=== PATIENT | male | born 1960 | race Asian ===

== ENCOUNTER 2024-11-24 19:00 | Inpatient (IN) | payer OTHER, MEDICARE ==
[~2024-11-24] VITALS: Ht 175.3 cm; Wt 83.1 kg
[2024-11-24 20:07] LABS: BASOPHILS % 0.6 % (0.0-2.0); EOSINOPHILS % 1.4 % (0.0-5.0); HEMATOCRIT. 38.8 % (42.0-52.0); LYMPHOCYTES % 14.1 % (20.0-50.0); MEAN CORPUSCULAR HEMOGLOBIN 30.2 pg (28.0-32.0); MEAN CORPUSCULAR HGB CONC 33.4 g/dL (31.0-37.0); MEAN CORPUSCULAR VOLUME 90.4 fL (80.0-94.0); MEAN PLATELET VOLUME 7.8 fl (7.4-10.4); MONOCYTES % 6.7 % (2.0-8.0); NEUTROPHILS % 77.2 % (40.0-76.0); PLATELET 359 x1000/uL (130-400); RED BLOOD CELL COUNT 4.29 mill/uL (4.7-6.1); RED CELL DISTRIBUTION WIDTH 13.1 % (11.6-14.6)
[2024-11-24 20:15] LABS: CHLORIDE 103 mEq/L (98-107); POTASSIUM 4.2 mEq/L (3.5-5.1); SODIUM 137 mEq/L (136-145)
[2024-11-24 20:16] LABS: CALCIUM 8.9 mg/dL (8.7-10.4); CARBON DIOXIDE 26 mEq/L (21-32)
[2024-11-24 20:21] LABS: CREATININE 0.9 mg/dL (0.6-1.3); GLUCOSE 138 mg/dL (70-105); UREA NITROGEN BLOOD 16 mg/dL (9-23)
[2024-11-24 20:23] LABS: ALANINE AMINOTRANSFERASE 48 IU/L (10-49); ASPARTATE AMINOTRANSFERASE 36 IU/L (<34); BILIRUBIN DIRECT 0.1 mg/dL (<=3.0); BILIRUBIN TOTAL 0.4 mg/dL (0.1-1.0); PROTEIN TOTAL 7.8 g/dL (6.0-8.3)
[2024-11-24 20:28] LABS: D-DIMER 0.34 mg/L FEU (<0.50); PROTHROMBIN TIME 10.6 sec (9.6-11.0)
[2024-11-24 20:29] LABS: TROPONIN I HIGH SENSITIVITY 78 ng/L (3.0-53)
[2024-11-24] MEDS: DIPHENHYDRAMINE 50MG/ML VIAL IV NR (21:34)
[2024-11-24 23:58] LABS: CLARITY URINE CLEAR (CLEAR); COLOR URINE YELLOW (YELLOW); GLUCOSE URINE NEGATIVE (NEGATIVE); KETONES URINE NEGATIVE (NEGATIVE); LEUKOCYTE ESTERASE URINE NEGATIVE (NEGATIVE); NITRITE URINE NEGATIVE (NEGATIVE); OCCULT BLOOD URINE NEGATIVE (NEGATIVE); PROTEIN URINE NEGATIVE (NEGATIVE); SPECIFIC GRAVITY URINE 1.011 (1.005-1.030); UROBILINOGEN URINE 0.2 E.U./dL (0.2-1.0)
[2024-11-25] MEDS: ASPIRIN 325MG EC TABLET PO NR (00:14)
[2024-11-25] MEDS: ENOXAPARIN 80MG/0.8ML SYR SUBCUT NR (00:15)
[2024-11-25] MEDS ORDERED: HYDROCODONE/ACETAMINOPHEN 5/325MG TABLET PO PRN (00:30)
[2024-11-25] MEDS ORDERED: ZOLPIDEM TARTRATE 5MG TABLET PO PRN (00:30)
[2024-11-25] MEDS ORDERED: ONDANSETRON HCL 4MG/2ML INJ IV PRN (00:30)
[2024-11-25] MEDS: CLONIDINE 0.1MG TABLET PO PRN (01:09)
[2024-11-25] MEDS: SODIUM CHLORIDE 0.9% 1,000 ML IV SCH (01:09)
[2024-11-25 01:43] VITALS: BP 167/94; PULSE 63; RESP 16; TEMP 36.3
[2024-11-25 04:00] VITALS: BP 119/71; PULSE 51; RESP 18; TEMP 36.6; O2SAT 98
[2024-11-25 04:56] LABS: CLARITY URINE CLEAR (CLEAR); COLOR URINE YELLOW (YELLOW); GLUCOSE URINE NEGATIVE (NEGATIVE); KETONES URINE NEGATIVE (NEGATIVE); LEUKOCYTE ESTERASE URINE NEGATIVE (NEGATIVE); NITRITE URINE NEGATIVE (NEGATIVE); OCCULT BLOOD URINE NEGATIVE (NEGATIVE); PH URINE 6.5 (4.5-8.0); PROTEIN URINE NEGATIVE (NEGATIVE); SPECIFIC GRAVITY URINE 1.012 (1.005-1.030); UROBILINOGEN URINE 0.2 E.U./dL (0.2-1.0)
[2024-11-25 05:15] LABS: *AMPHETAMINES SCREEN URINE NEGATIVE (NEGATIVE); *BARBITURATES SCREEN URINE NEGATIVE (NEGATIVE); *BENZODIAZEPINES SCREEN URINE NEGATIVE (NEGATIVE); *COCAINE SCREEN URINE NEGATIVE (NEGATIVE)
[2024-11-25 05:16] LABS: CANNABINOID URINE SCREEN NEGATIVE (NEGATIVE); ECSTASY MDMA SCREEN URINE NEGATIVE (NEGATIVE); METHADONE URINE SCREEN NEGATIVE (NEGATIVE); OPIATES URINE SCREEN NEGATIVE (NEGATIVE); PHENCYCLIDINE URINE SCREEN NEGATIVE (NEGATIVE)
[2024-11-25 08:00] VITALS: BP 119/71; PULSE 65; RESP 15; TEMP 36.4; O2SAT 98
[2024-11-25] MEDS: PANTOPRAZOLE SODIUM 40 MG/VIAL IV SCH (08:43)
[2024-11-25 09:42] LABS: TROPONIN I HIGH SENSITIVITY 83 ng/L (3.0-53)
[2024-11-25] MEDS: ENOXAPARIN 80MG/0.8ML SYR SUBCUT SCH ×2 (11:00→18:11)
[2024-11-25 12:00] VITALS: BP 150/92; PULSE 62; RESP 20; TEMP 36.7; O2SAT 98
[2024-11-25] MEDS: EMPAGLIFLOZIN 10MG TABLET PO SCH (13:25)
[2024-11-25] MEDS: ASPIRIN 81MG TABLET PO SCH (13:25)
[2024-11-25] MEDS ORDERED: HEPARIN 1000 UNITS/ML 10ML ONE (13:52)
[2024-11-25] MEDS ORDERED: IODIXANOL 320MG/ML 100 ML BOTTLE IV ONE (13:52)
[2024-11-25] MEDS ORDERED: VERAPAMIL HCL 2.5 MG/1 ML 2ML VIAL IV ONE (13:52)
[2024-11-25] MEDS ORDERED: LIDOCAINE HCL 1% 10 MG/ML 10ML VIAL ONE (13:52)
[2024-11-25] MEDS ORDERED: MIDAZOLAM HCL 2 MG/2 ML VIAL ONE (14:18)
[2024-11-25] MEDS ORDERED: DIPHENHYDRAMINE 50MG/ML VIAL ONE (14:18)
[2024-11-25] MEDS ORDERED: FENTANYL CITRATE/PF 50MCG/ML 2ML VIAL ONE (14:18)
[2024-11-25 16:00] VITALS: BP 144/91; PULSE 56; RESP 16; TEMP 36.8; O2SAT 95
[2024-11-25] MEDS ORDERED: ATROPINE SULFATE 1MG/10ML SYR IV PRN (16:00)
[2024-11-25] MEDS ORDERED: ACETAMINOPHEN 325MG TABLET PO PRN (16:00)
[2024-11-25] MEDS ORDERED: NALOXONE HCL 0.4MG/ML VIAL IV PRN (16:00)
[2024-11-25 16:47] LABS: TROPONIN I HIGH SENSITIVITY 51 ng/L (3.0-53)
[2024-11-25 20:00] VITALS: BP 134/75; PULSE 65; RESP 15; TEMP 36.7; O2SAT 94
[2024-11-25] MEDS: ATORVASTATIN CALCIUM 40MG TABLET PO SCH (21:06)
[2024-11-26] VITALS: BP 139/85; PULSE 59; RESP 19; TEMP 36.8; O2SAT 96
[2024-11-26 04:00] VITALS: BP 140/90; PULSE 59; RESP 19; TEMP 36.2; O2SAT 100
[2024-11-26 07:02] LABS: BASOPHILS % 0.5 % (0.0-2.0); EOSINOPHILS % 0.7 % (0.0-5.0); HEMATOCRIT. 39.2 % (42.0-52.0); HEMOGLOBIN. 13.1 g/dL (14.0-18.0); LYMPHOCYTES % 13.2 % (20.0-50.0); MEAN CORPUSCULAR HEMOGLOBIN 30.1 pg (28.0-32.0); MEAN CORPUSCULAR HGB CONC 33.3 g/dL (31.0-37.0); MEAN CORPUSCULAR VOLUME 90.4 fL (80.0-94.0); MEAN PLATELET VOLUME 8.3 fl (7.4-10.4); MONOCYTES % 6.2 % (2.0-8.0); NEUTROPHILS % 79.4 % (40.0-76.0); PLATELET 323 x1000/uL (130-400); RED BLOOD CELL COUNT 4.34 mill/uL (4.7-6.1); RED CELL DISTRIBUTION WIDTH 13.1 % (11.6-14.6); WHITE BLOOD COUNT 12.2 x1000/uL (4.5-11.0)
[2024-11-26 07:12] LABS: CHLORIDE 103 mEq/L (98-107); POTASSIUM 4.2 mEq/L (3.5-5.1); SODIUM 138 mEq/L (136-145)
[2024-11-26 07:13] LABS: CARBON DIOXIDE 26 mEq/L (21-32)
[2024-11-26 07:14] LABS: CALCIUM 8.9 mg/dL (8.7-10.4)
[2024-11-26 07:18] LABS: GLUCOSE 101 mg/dL (70-105)
[2024-11-26 07:19] LABS: UREA NITROGEN BLOOD 16 mg/dL (9-23)
[2024-11-26 08:00] VITALS: BP 154/98; PULSE 62; RESP 17; TEMP 36.9; O2SAT 98
[2024-11-26 12:00] VITALS: BP 168/114; PULSE 62; RESP 16; TEMP 36.9; O2SAT 100
[2024-11-26 16:00] VITALS: BP 157/95; PULSE 59; RESP 18; TEMP 36.8; O2SAT 100
[2024-11-26 20:00] VITALS: BP 147/94; PULSE 59; RESP 17; TEMP 36.6; O2SAT 98
[2024-11-27 00:29] VITALS: BP 152/98; PULSE 66; RESP 16; TEMP 37; O2SAT 95
[2024-11-27 04:36] VITALS: BP 150/95; PULSE 59; RESP 11; TEMP 36.4; O2SAT 99
[2024-11-27 06:30] LABS: CARBON DIOXIDE 24 mEq/L (21-32); CHLORIDE 102 mEq/L (98-107); SODIUM 137 mEq/L (136-145)
[2024-11-27 06:36] LABS: CREATININE 0.9 mg/dL (0.6-1.3); GLUCOSE 98 mg/dL (70-105); TRIGLYCERIDE 174 mg/dL (0-150); UREA NITROGEN BLOOD 14 mg/dL (9-23)
[2024-11-27 06:37] LABS: LDL CHOLESTEROL 102 mg/dL (5-100)
[2024-11-27 06:38] LABS: CHOLESTEROL 164 mg/dL (<200); HDL CHOLESTEROL 37 mg/dL (>55)
[2024-11-27 08:00] VITALS: BP 153/95; PULSE 67; RESP 18; TEMP 36.6; O2SAT 99
[2024-11-27] MEDS: FAMOTIDINE 20MG TABLET PO SCH (08:12)
[2024-11-27] MEDS: ISOSORBIDE MONONITRATE 30MG TABLET SR 24HR PO NR (10:19)
[2024-11-27 12:00] VITALS: BP 147/83; PULSE 55; RESP 18; TEMP 36.8; O2SAT 98
[2024-11-27 16:00] VITALS: BP 136/70; PULSE 60; RESP 20; TEMP 36.7; O2SAT 98
[2024-11-27 20:00] VITALS: BP 142/81; PULSE 55; RESP 19; TEMP 36.4; O2SAT 97
[2024-11-28] VITALS (7 sets, daily range): BP systolic 120–143; BP diastolic 57–91; PULSE 58–74; RESP 16–21; TEMP 36.5–37.2; O2SAT 95–100
[2024-11-28 08:43] LABS: CARBON DIOXIDE 26 mEq/L (21-32); CHLORIDE 101 mEq/L (98-107); SODIUM 136 mEq/L (136-145)
[2024-11-28 08:44] LABS: CALCIUM 8.9 mg/dL (8.7-10.4)
[2024-11-28 08:49] LABS: GLUCOSE 143 mg/dL (70-105); UREA NITROGEN BLOOD 14 mg/dL (9-23)
[2024-11-28 10:34] LABS: BASOPHILS % 0.4 % (0.0-2.0); EOSINOPHILS % 0.7 % (0.0-5.0); HEMATOCRIT. 39.7 % (42.0-52.0); LYMPHOCYTES % 14.5 % (20.0-50.0); MEAN CORPUSCULAR HEMOGLOBIN 29.6 pg (28.0-32.0); MEAN CORPUSCULAR HGB CONC 32.7 g/dL (31.0-37.0); MEAN CORPUSCULAR VOLUME 90.3 fL (80.0-94.0); MEAN PLATELET VOLUME 8.7 fl (7.4-10.4); MONOCYTES % 7.6 % (2.0-8.0); NEUTROPHILS % 76.8 % (40.0-76.0); PLATELET 331 x1000/uL (130-400); RED CELL DISTRIBUTION WIDTH 13.1 % (11.6-14.6); WHITE BLOOD COUNT 11.4 x1000/uL (4.5-11.0)
[2024-11-28 10:42] LABS: PROTHROMBIN TIME 10.9 sec (9.6-11.0)
[2024-11-28] MEDS: DEXT 5%/0.45% NACL KCL 20MEQ/L 1,000 ML IV SCH (11:30)
[2024-11-28] MEDS: ISOSORBIDE MONONITRATE 30MG TABLET SR 24HR PO SCH (11:30)
[2024-11-28] MEDS: IPRATROPIUM/ALBUTEROL 0.5-3(2.5)MG/3ML NEB NEB PRN (11:52)
[2024-11-28] MEDS: CHLORHEXIDINE GLUCONATE 4% EXTERNAL USE TOP SCH (21:25)
[2024-11-29] VITALS (40 sets, daily range): BP systolic 79–145; BP diastolic 43–96; PULSE 61–92; RESP 8–39; TEMP 36–36.9; O2SAT 97–100
[2024-11-29] MEDS ORDERED: DEL NIDO CARDIOPLEGIA 1,000 ML (CHMC) IV NR (05:00)
[2024-11-29] MEDS ORDERED: DOBUTAMINE 250 MG/250 ML PREMIX IV PRN (05:00)
[2024-11-29] MEDS ORDERED: NICARDIPINE 40MG/200ML PREMIX 200 ML IV PRN (05:00)
[2024-11-29] MEDS ORDERED: AMINOCAPROIC ACID 5,000 MG in SODIUM CHLORIDE 0.9% 250 ML IV PRN (05:00)
[2024-11-29] MEDS ORDERED: PAPAVERINE HCL 180MG in SODIUM CHLORIDE 0.9% 24ML IV NR (05:00)
[2024-11-29] MEDS ORDERED: VANCOMYCIN 1 G/200 ML PREMIX IV NR (05:00)
[2024-11-29] MEDS ORDERED: NOREPINEPHRINE 8MG/250ML PMX 242 ML IV PRN (05:00)
[2024-11-29] MEDS ORDERED: NICARDIPINE 50 MG in NS 250 ML IV PRN (05:00)
[2024-11-29] MEDS ORDERED: INSULIN REGULAR 100 U/100 ML PREMIX IV PRN (05:00)
[2024-11-29] MEDS ORDERED: DEL NIDO CARDIOPLEGIA 1,000 ML (CHMC) IV PRN (05:00)
[2024-11-29] MEDS ORDERED: CEFEPIME 2GM/50ML DUPLEX 50 ML IV NR (05:00)
[2024-11-29] MEDS ORDERED: EPINEPHRINE 5 MG in DEXT 5% WATER 250 ML IV PRN (05:00)
[2024-11-29 05:54] LABS: CHLORIDE 103 mEq/L (98-107); POTASSIUM 4.2 mEq/L (3.5-5.1); SODIUM 137 mEq/L (136-145)
[2024-11-29 05:55] LABS: CARBON DIOXIDE 24 mEq/L (21-32)
[2024-11-29 06:00] LABS: GLUCOSE 106 mg/dL (70-105); UREA NITROGEN BLOOD 13 mg/dL (9-23)
[2024-11-29 06:07] LABS: HEMATOCRIT 38.6 % (42.0-52.0); HEMOGLOBIN 12.5 g/dL (14.0-18.0); MEAN CORPUSCULAR HEMOGLOBIN 29.9 pg (28.0-32.0); MEAN CORPUSCULAR HGB CONC 32.4 g/dL (31.0-37.0); MEAN CORPUSCULAR VOLUME 92.1 fL (80.0-94.0); PLATELET 330 x1000/uL (130-400); RED BLOOD CELL COUNT 4.19 mill/uL (4.7-6.1); RED CELL DISTRIBUTION WIDTH 13.2 % (11.6-14.6); WHITE BLOOD COUNT 11.3 x1000/uL (4.5-11.0)
[2024-11-29] MEDS ORDERED: POLYMYXIN B SULFATE 500000 UNITS/VIAL ONE (06:11)
[2024-11-29] MEDS ORDERED: SKIN ADHESIVE 0.7 GM EA TOP ONE (06:12)
[2024-11-29] MEDS ORDERED: VASOPRESSIN 20 UNIT/ML 1ML ONE (06:12)
[2024-11-29] MEDS ORDERED: SUGAMMADEX SODIUM 200MG/2ML VIAL IV ONE (06:12)
[2024-11-29] MEDS ORDERED: THROMBIN (BOVINE) 5000 UNITS/VIAL TOP ONE ×2 (06:12→13:49)
[2024-11-29] MEDS ORDERED: DESMOPRESSIN ACETATE 4MCG/ML AMP ONE (06:13)
[2024-11-29] MEDS ORDERED: HEPARIN 1000 UNITS/ML 10ML ONE (06:16)
[2024-11-29] MEDS ORDERED: SEVOFLURANE 250 ML LIQUID INH ONE (06:16)
[2024-11-29] MEDS ORDERED: NITROGLYCERIN 50MG PREMIX 250 ML IV ONE (06:16)
[2024-11-29] MEDS ORDERED: PROPOFOL 10MG/ML 100ML 100 ML IV ONE (06:17)
[2024-11-29] MEDS ORDERED: DOPAMINE 400MG/250ML PREMIX 250 ML IV ONE (06:18)
[2024-11-29] MEDS: CHLORHEXIDINE GLUCONATE 4% EXTERNAL USE TOP SCH (07:03)
[2024-11-29] MEDS ORDERED: MIDAZOLAM HCL 2 MG/2 ML VIAL ONE ×5 (07:27→07:28)
[2024-11-29] MEDS ORDERED: FENTANYL CITRATE/PF 50MCG/ML 5ML VIAL ONE (07:27)
[2024-11-29] MEDS ORDERED: ROCURONIUM BROMIDE 10MG/ML VIAL 5ML IV ONE ×2 (07:27→10:10)
[2024-11-29] MEDS ORDERED: HYDROMORPHONE HCL/PF 1MG/ML INJ ONE ×2 (07:28→07:29)
[2024-11-29 08:45] LABS: PROTHROMBIN TIME 10.7 sec (9.6-11.0)
[2024-11-29] MEDS ORDERED: MANNITOL 20% 1,000 ML IV ONE (09:02)
[2024-11-29] MEDS ORDERED: SODIUM BICARBONATE 8.4% 50MEQ/50ML SYR IV ONE (12:57)
[2024-11-29] MEDS ORDERED: CALCIUM CHLORIDE 1GM/10ML SYR IV ONE (13:31)
[2024-11-29 15:26] LABS: HEMATOCRIT. 25.8 % (42.0-52.0); HEMOGLOBIN. 8.9 g/dL (14.0-18.0); MEAN CORPUSCULAR HEMOGLOBIN 30.8 pg (28.0-32.0); MEAN CORPUSCULAR HGB CONC 34.3 g/dL (31.0-37.0); MEAN CORPUSCULAR VOLUME 89.8 fL (80.0-94.0); MEAN PLATELET VOLUME 8.1 fl (7.4-10.4); PLATELET 192 x1000/uL (130-400); RED BLOOD CELL COUNT 2.88 mill/uL (4.7-6.1); WHITE BLOOD COUNT 30.6 x1000/uL (4.5-11.0)
[2024-11-29 15:27] LABS: DIFFERENTIAL COMMENT 1
[2024-11-29] MEDS ORDERED: FENTANYL CITRATE/PF 50MCG/ML 2ML VIAL ONE (15:29)
[2024-11-29 15:43] LABS: INR 1.2; PARTIAL THROMBOPLASTIN TIME 29.5 sec (23.4-31.0); PROTHROMBIN TIME 12.8 sec (9.6-11.0)
[2024-11-29 15:50] LABS: CARBON DIOXIDE 27 mEq/L (21-32); CHLORIDE 103 mEq/L (98-107); POTASSIUM 4.3 mEq/L (3.5-5.1); SODIUM 144 mEq/L (136-145)
[2024-11-29 15:51] LABS: CALCIUM 9.8 mg/dL (8.7-10.4)
[2024-11-29 15:55] LABS: GLUCOSE 120 mg/dL (70-105)
[2024-11-29 15:56] LABS: UREA NITROGEN BLOOD 15 mg/dL (9-23)
[2024-11-29 15:57] LABS: ALANINE AMINOTRANSFERASE 64 IU/L (10-49); ALBUMIN 3.3 g/dL (3.2-4.8); ASPARTATE AMINOTRANSFERASE 88 IU/L (<34)
[2024-11-29 15:58] LABS: BILIRUBIN TOTAL 1.7 mg/dL (0.1-1.0); PHOSPHORUS 5.3 mg/dL (2.5-4.9)
[2024-11-29 16:03] LABS: PROTEIN TOTAL 5.5 g/dL (6.0-8.3)
[2024-11-29 16:19] LABS: BG CARBOXYHEMOGLOBIN 0.7 % (0.5-1.5); BG DEOXYHEMOGLOBIN 6.6 % (0.0-5.0); BG FRACTION INSPIRED OXYGEN 60; BG HCO3 ACT 25.6 mmol/L (21.0-28.0); BG METHEMOGLOBIN 0.2 % (0.5-1.5); BG OXYGEN SATURATION 93.3 % (94.0-98.0); BG OXYHEMOGLOBIN 92.5 % (94.0-98.0); BG PCO2 45.7 mmHg (35.0-48.0); BG PH 7.366 (7.350-7.450); BG PO2 73.9 mmHg (83.0-108.0); BG SAMPLE SITE ALINE; BG VENT MODE VENT - AC
[2024-11-29] MEDS ORDERED: SODIUM CHLORIDE 0.9% 500 ML IV PRN (16:45)
[2024-11-29 17:17] LABS: BG BASE EXCESS -3.5 mmol/L (-2.0-3.0); BG CARBOXYHEMOGLOBIN 0.1 % (0.5-1.5); BG FRACTION INSPIRED OXYGEN 60; BG HCO3 ACT 22.2 mmol/L (21.0-28.0); BG METHEMOGLOBIN 0.3 % (0.5-1.5); BG OXYHEMOGLOBIN 97.6 % (94.0-98.0); BG PCO2 42.7 mmHg (35.0-48.0); BG PH 7.334 (7.350-7.450); BG PO2 128.5 mmHg (83.0-108.0); BG SAMPLE SITE ALINE; BG TOTAL RESPIRATORY RATE 21 b/min; BG VENT MODE VENT - SIMV
[2024-11-29] MEDS: IPRATROPIUM/ALBUTEROL 0.5-3(2.5)MG/3ML NEB HHN SCH (17:49)
[2024-11-29 18:34] LABS: HEMATOCRIT. 26.7 % (42.0-52.0); HEMOGLOBIN. 8.6 g/dL (14.0-18.0); MEAN CORPUSCULAR HGB CONC 32.3 g/dL (31.0-37.0); MEAN CORPUSCULAR VOLUME 92.7 fL (80.0-94.0); MEAN PLATELET VOLUME 8.2 fl (7.4-10.4); PLATELET 220 x1000/uL (130-400); RED BLOOD CELL COUNT 2.88 mill/uL (4.7-6.1); RED CELL DISTRIBUTION WIDTH 13.1 % (11.6-14.6); WHITE BLOOD COUNT 26.2 x1000/uL (4.5-11.0)
[2024-11-29 18:36] LABS: DIFFERENTIAL COMMENT 1
[2024-11-29] MEDS: ALBUMIN HUMAN 25GM/100ML (25%) IV NR (18:39)
[2024-11-29 18:42] LABS: CHLORIDE 108 mEq/L (98-107); POTASSIUM 3.8 mEq/L (3.5-5.1); SODIUM 147 mEq/L (136-145)
[2024-11-29 18:43] LABS: CALCIUM 8.9 mg/dL (8.7-10.4); CARBON DIOXIDE 26 mEq/L (21-32)
[2024-11-29] MEDS ORDERED: DEXTROSE 50% WATER 50ML SYRINGE IV PRN ×2 (18:45)
[2024-11-29] MEDS ORDERED: EPINEPHRINE 5 MG in SODIUM CHLORIDE 0.9% 245 ML IV PRN (18:45)
[2024-11-29] MEDS ORDERED: INSULIN REGULAR 100U/100ML PMX 100 ML IV SCH (18:45)
[2024-11-29 18:48] LABS: CREATININE 1.2 mg/dL (0.6-1.3); GLUCOSE 145 mg/dL (70-105); UREA NITROGEN BLOOD 16 mg/dL (9-23)
[2024-11-29 18:53] LABS: INR 1.1; PARTIAL THROMBOPLASTIN TIME 34.2 sec (23.4-31.0); PROTHROMBIN TIME 11.6 sec (9.6-11.0)
[2024-11-29] MEDS ORDERED: NOREPINEPHRINE 8 MG in DEXT 5% WATER 242 ML IV PRN (19:00)
[2024-11-29] MEDS: BLOOD SUGAR DIAGNOSTIC STRIP TEST SCH (19:00)
[2024-11-29] MEDS: ALBUMIN HUMAN 12.5G/250ML (5%) IV NR (19:05)
[2024-11-29] MEDS: INSULIN REGULAR 100U/100ML PMX 100 ML IV SCH (19:14)
[2024-11-29] MEDS: NOREPINEPHRINE 8MG/250ML PMX 242 ML IV PRN (19:14)
[2024-11-29] MEDS: EPINEPHRINE 5 MG in SODIUM CHLORIDE 0.9% 245 ML IV PRN (19:23)
[2024-11-29] MEDS ORDERED: KCL 10MEQ/50ML PREMIX 150 ML IV PRN (19:45)
[2024-11-29] MEDS ORDERED: KCL 10MEQ/50ML PREMIX 200 ML IV PRN (19:45)
[2024-11-29 20:05] LABS: PLATELET ESTIMATE NORMAL
[2024-11-29 20:27] LABS: BG BASE EXCESS -0.9 mmol/L (-2.0-3.0); BG CARBOXYHEMOGLOBIN 0.5 % (0.5-1.5); BG DEOXYHEMOGLOBIN 1.9 % (0.0-5.0); BG FRACTION INSPIRED OXYGEN 40; BG METHEMOGLOBIN 0.3 % (0.5-1.5); BG OXYGEN SATURATION 98.1 % (94.0-98.0); BG OXYHEMOGLOBIN 97.3 % (94.0-98.0); BG PCO2 40.2 mmHg (35.0-48.0); BG PH 7.393 (7.350-7.450); BG SAMPLE SITE ALINE; BG TOTAL HEMOGLOBIN 8.2 g/dL (13.5-17.5); BG VENT MODE VENT - AC
[2024-11-29] MEDS: KCL 10MEQ/50ML PREMIX 100 ML IV PRN (21:33)
[2024-11-29 22:21] LABS: BG BASE EXCESS 0.4 mmol/L (-2.0-3.0); BG CARBOXYHEMOGLOBIN 0.8 % (0.5-1.5); BG DEOXYHEMOGLOBIN 1.6 % (0.0-5.0); BG FRACTION INSPIRED OXYGEN 40; BG HCO3 ACT 24.9 mmol/L (21.0-28.0); BG METHEMOGLOBIN 0.3 % (0.5-1.5); BG OXYGEN SATURATION 98.4 % (94.0-98.0); BG OXYHEMOGLOBIN 97.3 % (94.0-98.0); BG PCO2 39.4 mmHg (35.0-48.0); BG PH 7.418 (7.350-7.450); BG PO2 126.6 mmHg (83.0-108.0); BG SAMPLE SITE ALINE; BG TOTAL HEMOGLOBIN 7.8 g/dL (13.5-17.5); BG VENT MODE VENT - CPAP
[2024-11-29 23:15] LABS: PLATELET ESTIMATE NORMAL
[2024-11-29 23:35] LABS: MEAN CORPUSCULAR HGB CONC 32.5 g/dL (31.0-37.0); MEAN CORPUSCULAR VOLUME 92.5 fL (80.0-94.0); MEAN PLATELET VOLUME 7.9 fl (7.4-10.4); PLATELET 182 x1000/uL (130-400); RED BLOOD CELL COUNT 2.27 mill/uL (4.7-6.1); RED CELL DISTRIBUTION WIDTH 13.1 % (11.6-14.6); WHITE BLOOD COUNT 16.4 x1000/uL (4.5-11.0)
[2024-11-29 23:42] LABS: CHLORIDE 110 mEq/L (98-107); POTASSIUM 4.1 mEq/L (3.5-5.1); SODIUM 147 mEq/L (136-145)
[2024-11-29 23:43] LABS: CARBON DIOXIDE 27 mEq/L (21-32); DIFFERENTIAL COMMENT 1
[2024-11-29 23:44] LABS: CALCIUM 8.9 mg/dL (8.7-10.4)
[2024-11-29 23:47] LABS: HEMOGLOBIN. 6.8 g/dL (14.0-18.0)
[2024-11-29 23:48] LABS: CREATININE 1.3 mg/dL (0.6-1.3); GLUCOSE 147 mg/dL (70-105); UREA NITROGEN BLOOD 17 mg/dL (9-23)
[2024-11-29 23:50] LABS: PHOSPHORUS 1.4 mg/dL (2.5-4.9)
[2024-11-30] VITALS (101 sets, daily range): BP systolic 91–151; BP diastolic 40–78; PULSE 70–93; RESP 6–36; TEMP 36.7–38; O2SAT 95–100
[2024-11-30] MEDS ORDERED: DEXT 5%/0.45% NACL KCL 20MEQ/L 1,000 ML IV SCH
[2024-11-30 00:54] LABS: INR 1.2; PROTHROMBIN TIME 12.4 sec (9.6-11.0)
[2024-11-30] MEDS ORDERED: CEFAZOLIN SODIUM 1000MG/VIAL IV SCH (01:45)
[2024-11-30] MEDS: PHYTONADIONE 10 MG in DEXTROSE 5% WATER 50 ML IV NR (01:53)
[2024-11-30] MEDS: CEFAZOLIN 1000MG PREMIX 50ML IV SCH (01:54)
[2024-11-30 04:41] LABS: PLATELET ESTIMATE NORMAL
[2024-11-30] MEDS: VANCOMYCIN 1.25GM/250ML IV NR (04:51)
[2024-11-30 05:17] LABS: BG BASE EXCESS 0.7 mmol/L (-2.0-3.0); BG CARBOXYHEMOGLOBIN 0.3 % (0.5-1.5); BG DEOXYHEMOGLOBIN 1.8 % (0.0-5.0); BG FRACTION INSPIRED OXYGEN 32; BG HCO3 ACT 24.9 mmol/L (21.0-28.0); BG METHEMOGLOBIN 0.3 % (0.5-1.5); BG OXYGEN SATURATION 98.2 % (94.0-98.0); BG OXYHEMOGLOBIN 97.6 % (94.0-98.0); BG PCO2 38.4 mmHg (35.0-48.0); BG PO2 117.1 mmHg (83.0-108.0); BG SAMPLE SITE ALINE; BG TOTAL HEMOGLOBIN 10.3 g/dL (13.5-17.5); BG VENT MODE NASAL CANNULA
[2024-11-30 05:25] LABS: HEMATOCRIT. 28.9 % (42.0-52.0); HEMOGLOBIN. 9.7 g/dL (14.0-18.0); MEAN CORPUSCULAR HEMOGLOBIN 29.9 pg (28.0-32.0); MEAN CORPUSCULAR HGB CONC 33.6 g/dL (31.0-37.0); MEAN CORPUSCULAR VOLUME 89.1 fL (80.0-94.0); MEAN PLATELET VOLUME 8.6 fl (7.4-10.4); PLATELET 157 x1000/uL (130-400); RED BLOOD CELL COUNT 3.24 mill/uL (4.7-6.1); RED CELL DISTRIBUTION WIDTH 13.8 % (11.6-14.6); WHITE BLOOD COUNT 15.6 x1000/uL (4.5-11.0)
[2024-11-30 05:44] LABS: DIFFERENTIAL COMMENT 1
[2024-11-30 05:53] LABS: CARBON DIOXIDE 29 mEq/L (21-32); CHLORIDE 109 mEq/L (98-107); POTASSIUM 4.4 mEq/L (3.5-5.1); SODIUM 146 mEq/L (136-145)
[2024-11-30 05:59] LABS: CREATININE 1.1 mg/dL (0.6-1.3); GLUCOSE 105 mg/dL (70-105)
[2024-11-30 06:00] LABS: UREA NITROGEN BLOOD 16 mg/dL (9-23)
[2024-11-30 06:28] LABS: INR 1.1; PARTIAL THROMBOPLASTIN TIME 37.8 sec (23.4-31.0); PROTHROMBIN TIME 12.1 sec (9.6-11.0)
[2024-11-30] MEDS ORDERED: ALBUMIN HUMAN 25GM/100ML (25%) IV ONE (07:52)
[2024-11-30] MEDS: BACITRACIN 14GM TUBE TOP SCH (08:53)
[2024-11-30] MEDS ORDERED: NITROGLYCERIN 50MG PREMIX 250 ML IV PRN (09:45)
[2024-11-30] MEDS: METOPROLOL TARTRATE 25MG TABLET PO SCH (09:54)
[2024-11-30] MEDS: HYDROCODONE/ACETAMINOPHEN 5/325MG TABLET PO PRN (09:55)
[2024-11-30] MEDS: ACETAMINOPHEN 325MG TABLET PO PRN (11:07)
[2024-11-30 12:36] LABS: HEMATOCRIT 24.4 % (42.0-52.0); MEAN CORPUSCULAR HEMOGLOBIN 29.9 pg (28.0-32.0); MEAN CORPUSCULAR HGB CONC 32.6 g/dL (31.0-37.0); MEAN CORPUSCULAR VOLUME 91.7 fL (80.0-94.0); PLATELET 127 x1000/uL (130-400); RED BLOOD CELL COUNT 2.67 mill/uL (4.7-6.1); RED CELL DISTRIBUTION WIDTH 14.2 % (11.6-14.6); WHITE BLOOD COUNT 15.7 x1000/uL (4.5-11.0)
[2024-11-30 12:45] LABS: CHLORIDE 103 mEq/L (98-107); INR 1.2; PARTIAL THROMBOPLASTIN TIME 41.6 sec (23.4-31.0); POTASSIUM 3.9 mEq/L (3.5-5.1); PROTHROMBIN TIME 12.4 sec (9.6-11.0); SODIUM 140 mEq/L (136-145)
[2024-11-30 12:46] LABS: CARBON DIOXIDE 27 mEq/L (21-32)
[2024-11-30 12:47] LABS: CALCIUM 8.5 mg/dL (8.7-10.4)
[2024-11-30 12:51] LABS: CREATININE 0.9 mg/dL (0.6-1.3); GLUCOSE 129 mg/dL (70-105)
[2024-11-30 12:52] LABS: UREA NITROGEN BLOOD 14 mg/dL (9-23)
[2024-11-30 12:54] LABS: PHOSPHORUS 4.4 mg/dL (2.5-4.9)
[2024-11-30 14:20] LABS: PLATELET ESTIMATE NORMAL
[2024-11-30 18:28] LABS: HEMATOCRIT 26.6 % (42.0-52.0); HEMOGLOBIN 8.8 g/dL (14.0-18.0); MEAN CORPUSCULAR HEMOGLOBIN 30.4 pg (28.0-32.0); MEAN CORPUSCULAR HGB CONC 33.3 g/dL (31.0-37.0); MEAN CORPUSCULAR VOLUME 91.5 fL (80.0-94.0); PLATELET 143 x1000/uL (130-400); RED BLOOD CELL COUNT 2.91 mill/uL (4.7-6.1); RED CELL DISTRIBUTION WIDTH 14.3 % (11.6-14.6)
[2024-11-30] MEDS: ALBUMIN HUMAN 25GM/100ML (25%) IV NR (18:52)
[2024-11-30] MEDS: VANCOMYCIN 1.25GM/250ML 250 ML IV SCH (20:56)
[2024-12-01] VITALS (89 sets, daily range): BP systolic 96–154; BP diastolic 53–103; PULSE 68–104; RESP 14–50; TEMP 36.4–37.33632; O2SAT 92–100
[2024-12-01 07:26] LABS: HEMATOCRIT. 24.4 % (42.0-52.0); HEMOGLOBIN. 7.9 g/dL (14.0-18.0); MEAN CORPUSCULAR HEMOGLOBIN 29.8 pg (28.0-32.0); MEAN CORPUSCULAR HGB CONC 32.5 g/dL (31.0-37.0); MEAN CORPUSCULAR VOLUME 91.8 fL (80.0-94.0); MEAN PLATELET VOLUME 9.3 fl (7.4-10.4); PLATELET 138 x1000/uL (130-400); RED BLOOD CELL COUNT 2.65 mill/uL (4.7-6.1); RED CELL DISTRIBUTION WIDTH 13.9 % (11.6-14.6); WHITE BLOOD COUNT 17.9 x1000/uL (4.5-11.0)
[2024-12-01 07:42] LABS: CHLORIDE 100 mEq/L (98-107); POTASSIUM 4.2 mEq/L (3.5-5.1); SODIUM 136 mEq/L (136-145)
[2024-12-01 07:43] LABS: CALCIUM 8.3 mg/dL (8.7-10.4); CARBON DIOXIDE 28 mEq/L (21-32)
[2024-12-01 07:44] LABS: DIFFERENTIAL COMMENT 1
[2024-12-01 07:48] LABS: CREATININE 0.8 mg/dL (0.6-1.3); GLUCOSE 131 mg/dL (70-105); UREA NITROGEN BLOOD 11 mg/dL (9-23)
[2024-12-01 07:50] LABS: PHOSPHORUS 2.7 mg/dL (2.5-4.9)
[2024-12-01] MEDS ORDERED: DEXTROSE 50% WATER 50ML SYRINGE IV PRN (10:00)
[2024-12-01 12:59] LABS: HEMATOCRIT 22.4 % (42.0-52.0); HEMOGLOBIN 7.3 g/dL (14.0-18.0); MEAN CORPUSCULAR HEMOGLOBIN 29.8 pg (28.0-32.0); MEAN CORPUSCULAR HGB CONC 32.4 g/dL (31.0-37.0); MEAN CORPUSCULAR VOLUME 92.1 fL (80.0-94.0); PLATELET 121 x1000/uL (130-400); RED BLOOD CELL COUNT 2.43 mill/uL (4.7-6.1); WHITE BLOOD COUNT 19.2 x1000/uL (4.5-11.0)
[2024-12-01 13:12] LABS: INR 1.1; PARTIAL THROMBOPLASTIN TIME 42.1 sec (23.4-31.0); PROTHROMBIN TIME 11.4 sec (9.6-11.0)
[2024-12-01] MEDS: INSULIN LISPRO 100 UNITS/ML SUBCUT SCH (13:20)
[2024-12-01] MEDS: BLOOD SUGAR DIAGNOSTIC STRIP TEST SCH (13:33)
[2024-12-01 15:07] LABS: PLATELET ESTIMATE NORMAL
[2024-12-01] MEDS: PHYTONADIONE 10 MG in DEXTROSE 5% WATER 49 ML IV NR (15:52)
[2024-12-01 18:47] LABS: HEMATOCRIT 24.5 % (42.0-52.0); HEMOGLOBIN 7.9 g/dL (14.0-18.0); MEAN CORPUSCULAR HEMOGLOBIN 29.4 pg (28.0-32.0); MEAN CORPUSCULAR HGB CONC 32.2 g/dL (31.0-37.0); MEAN CORPUSCULAR VOLUME 91.2 fL (80.0-94.0); PLATELET 124 x1000/uL (130-400); RED BLOOD CELL COUNT 2.68 mill/uL (4.7-6.1); RED CELL DISTRIBUTION WIDTH 13.9 % (11.6-14.6)
[2024-12-02] VITALS (74 sets, daily range): BP systolic 90–152; BP diastolic 36–129; PULSE 73–123; RESP 16–40; TEMP 37.1–37.8; O2SAT 87–100
[2024-12-02 07:06] LABS: CHLORIDE 97 mEq/L (98-107); SODIUM 132 mEq/L (136-145)
[2024-12-02 07:07] LABS: CARBON DIOXIDE 26 mEq/L (21-32)
[2024-12-02 07:08] LABS: CALCIUM 8.6 mg/dL (8.7-10.4)
[2024-12-02 07:12] LABS: CREATININE 0.9 mg/dL (0.6-1.3); GLUCOSE 113 mg/dL (70-105)
[2024-12-02 07:13] LABS: UREA NITROGEN BLOOD 10 mg/dL (9-23)
[2024-12-02 07:15] LABS: PHOSPHORUS 2.8 mg/dL (2.5-4.9)
[2024-12-02 08:15] LABS: HEMATOCRIT. 26.3 % (42.0-52.0); HEMOGLOBIN. 8.5 g/dL (14.0-18.0); MEAN CORPUSCULAR HGB CONC 32.3 g/dL (31.0-37.0); MEAN CORPUSCULAR VOLUME 89.7 fL (80.0-94.0); MEAN PLATELET VOLUME 9.4 fl (7.4-10.4); PLATELET 135 x1000/uL (130-400); RED BLOOD CELL COUNT 2.93 mill/uL (4.7-6.1); RED CELL DISTRIBUTION WIDTH 14.1 % (11.6-14.6); WHITE BLOOD COUNT 17.1 x1000/uL (4.5-11.0)
[2024-12-02 09:44] LABS: DIFFERENTIAL COMMENT 1
[2024-12-02] MEDS: CALCIUM GLUCONATE 1GM PREMIX 50 ML IV NR ×2 (12:41→21:25)
[2024-12-02] MEDS: MULTIVITAMINS,THER W-MINERALS TABLET PO SCH (12:41)
[2024-12-02] MEDS: FERROUS SULFATE 325MG TABLET PO SCH (17:34)
[2024-12-02 17:54] LABS: PLATELET ESTIMATE NORMAL
[2024-12-02] MEDS: METOPROLOL TARTRATE 25MG TABLET PO NR (18:11)
[2024-12-02] MEDS: AMIODARONE 150MG/100ML PREMIX IV NR (18:28)
[2024-12-02] MEDS ORDERED: AMIODARONE HCL 150 MG in DEXT 5% WATER 100 ML IV ONE (18:30)
[2024-12-02 18:38] LABS: HEMATOCRIT. 29.7 % (42.0-52.0); HEMOGLOBIN. 9.7 g/dL (14.0-18.0); MEAN CORPUSCULAR HEMOGLOBIN 29.8 pg (28.0-32.0); MEAN CORPUSCULAR HGB CONC 32.7 g/dL (31.0-37.0); MEAN CORPUSCULAR VOLUME 90.9 fL (80.0-94.0); MEAN PLATELET VOLUME 9.2 fl (7.4-10.4); PLATELET 158 x1000/uL (130-400); RED BLOOD CELL COUNT 3.27 mill/uL (4.7-6.1); WHITE BLOOD COUNT 15.6 x1000/uL (4.5-11.0)
[2024-12-02 18:42] LABS: DIFFERENTIAL COMMENT 1
[2024-12-02 18:45] LABS: CHLORIDE 99 mEq/L (98-107); SODIUM 133 mEq/L (136-145)
[2024-12-02 18:46] LABS: CALCIUM 8.6 mg/dL (8.7-10.4); CARBON DIOXIDE 26 mEq/L (21-32)
[2024-12-02 18:51] LABS: CREATININE 0.8 mg/dL (0.6-1.3); GLUCOSE 119 mg/dL (70-105); UREA NITROGEN BLOOD 13 mg/dL (9-23)
[2024-12-02 18:53] LABS: PHOSPHORUS 2.9 mg/dL (2.5-4.9)
[2024-12-02] MEDS: AMIODARONE HCL 900 MG in DEXT 5% WATER 482 ML IV SCH (19:17)
[2024-12-02 23:52] LABS: PLATELET ESTIMATE NORMAL
[2024-12-03] VITALS (75 sets, daily range): BP systolic 68–150; BP diastolic 43–102; PULSE 66–91; RESP 11–51; TEMP 36.8–37.6; O2SAT 83–100
[2024-12-03 06:08] LABS: CHLORIDE 100 mEq/L (98-107); POTASSIUM 4.1 mEq/L (3.5-5.1); SODIUM 135 mEq/L (136-145)
[2024-12-03 06:09] LABS: CALCIUM 8.9 mg/dL (8.7-10.4); CARBON DIOXIDE 26 mEq/L (21-32)
[2024-12-03 06:14] LABS: CREATININE 0.8 mg/dL (0.6-1.3); GLUCOSE 108 mg/dL (70-105); UREA NITROGEN BLOOD 13 mg/dL (9-23)
[2024-12-03 06:16] LABS: ALANINE AMINOTRANSFERASE 152 IU/L (10-49); ALBUMIN 3.7 g/dL (3.2-4.8); ASPARTATE AMINOTRANSFERASE 172 IU/L (<34); PROTEIN TOTAL 6.5 g/dL (6.0-8.3)
[2024-12-03 07:51] LABS: PHOSPHORUS 3.8 mg/dL (2.5-4.9)
[2024-12-03 08:03] LABS: BASOPHILS % 0.1 % (0.0-2.0); EOSINOPHILS % 4.6 % (0.0-5.0); HEMATOCRIT. 27.6 % (42.0-52.0); HEMOGLOBIN. 9.1 g/dL (14.0-18.0); LYMPHOCYTES % 7.4 % (20.0-50.0); MEAN CORPUSCULAR HEMOGLOBIN 29.8 pg (28.0-32.0); MEAN CORPUSCULAR VOLUME 90.2 fL (80.0-94.0); MEAN PLATELET VOLUME 9.5 fl (7.4-10.4); MONOCYTES % 10.7 % (2.0-8.0); NEUTROPHILS % 77.2 % (40.0-76.0); PLATELET 196 x1000/uL (130-400); RED BLOOD CELL COUNT 3.06 mill/uL (4.7-6.1); RED CELL DISTRIBUTION WIDTH 13.9 % (11.6-14.6); WHITE BLOOD COUNT 13.9 x1000/uL (4.5-11.0)
[2024-12-03] MEDS ORDERED: NALOXONE HCL 0.4MG/ML VIAL IV PRN (08:45)
[2024-12-03] MEDS: METOPROLOL TARTRATE 25MG TABLET PO SCH (09:27)
[2024-12-03] MEDS: AMIODARONE 200MG TABLET PO SCH (10:59)
[2024-12-03] MEDS: FUROSEMIDE 20MG/2ML VIAL IVP NR (10:59)
[2024-12-03] MEDS: POTASSIUM CHLORIDE 10MEQ TABLET SR PO NR (10:59)
[2024-12-03 20:36] LABS: POTASSIUM 4.3 mEq/L (3.5-5.1)
[2024-12-04] VITALS (10 sets, daily range): BP systolic 104–121; BP diastolic 59–85; PULSE 73–87; RESP 20–29; TEMP 36.7–36.9; O2SAT 95–100
[2024-12-04 06:34] LABS: CARBON DIOXIDE 25 mEq/L (21-32); CHLORIDE 99 mEq/L (98-107); POTASSIUM 4.1 mEq/L (3.5-5.1); SODIUM 135 mEq/L (136-145)
[2024-12-04 06:35] LABS: CALCIUM 8.6 mg/dL (8.7-10.4)
[2024-12-04 06:39] LABS: CREATININE 0.8 mg/dL (0.6-1.3)
[2024-12-04 06:40] LABS: ALBUMIN 3.5 g/dL (3.2-4.8); GLUCOSE 93 mg/dL (70-105); UREA NITROGEN BLOOD 15 mg/dL (9-23)
[2024-12-04 06:41] LABS: ALANINE AMINOTRANSFERASE 443 IU/L (10-49); ASPARTATE AMINOTRANSFERASE 395 IU/L (<34)
[2024-12-04 06:42] LABS: BILIRUBIN TOTAL 0.9 mg/dL (0.1-1.0); PROTEIN TOTAL 6.4 g/dL (6.0-8.3)
[2024-12-04 06:47] LABS: HEMATOCRIT. 26.1 % (42.0-52.0); HEMOGLOBIN. 8.6 g/dL (14.0-18.0); MEAN CORPUSCULAR HEMOGLOBIN 30.3 pg (28.0-32.0); MEAN CORPUSCULAR HGB CONC 32.8 g/dL (31.0-37.0); MEAN CORPUSCULAR VOLUME 92.2 fL (80.0-94.0); MEAN PLATELET VOLUME 9.2 fl (7.4-10.4); PLATELET 239 x1000/uL (130-400); RED BLOOD CELL COUNT 2.83 mill/uL (4.7-6.1); RED CELL DISTRIBUTION WIDTH 13.8 % (11.6-14.6)
[2024-12-04 08:44] LABS: DIFFERENTIAL COMMENT 1
[2024-12-04] MEDS: FUROSEMIDE 20MG TABLET PO SCH (09:20)
[2024-12-04] MEDS: POTASSIUM CHLORIDE 10MEQ TABLET SR PO SCH (09:20)
[2024-12-04] MEDS: THROAT LOZENGES-BENZOCAINE/MENTH/CETYLPYRD CL LOZENGES MM PRN (09:52)
[2024-12-04 12:04] LABS: PLATELET ESTIMATE NORMAL
[2024-12-04 12:05] LABS: ANISOCYTOSIS 1+
[2024-12-04] MEDS: DIPHENHYDRAMINE 50MG/ML VIAL IV NR (12:49)
[2024-12-04] MEDS: FUROSEMIDE 40MG/4ML VIAL IVP NR (13:36)
[2024-12-04] MEDS: ATORVASTATIN CALCIUM 10MG TABLET PO SCH (21:48)
[2024-12-04] MEDS: FUROSEMIDE 40MG TABLET PO SCH (21:48)
[2024-12-05] VITALS: BP 117/67; PULSE 78; RESP 21; TEMP 37.2; O2SAT 96
[2024-12-05 04:00] VITALS: BP 117/73; PULSE 84; RESP 22; TEMP 36.9; O2SAT 96
[2024-12-05 07:14] LABS: CHLORIDE 96 mEq/L (98-107); SODIUM 135 mEq/L (136-145)
[2024-12-05 07:15] LABS: CALCIUM 8.5 mg/dL (8.7-10.4); CARBON DIOXIDE 27 mEq/L (21-32)
[2024-12-05 07:20] LABS: CREATININE 0.9 mg/dL (0.6-1.3); GLUCOSE 108 mg/dL (70-105); UREA NITROGEN BLOOD 15 mg/dL (9-23)
[2024-12-05 07:22] LABS: ALANINE AMINOTRANSFERASE 399 IU/L (10-49); ALBUMIN 3.7 g/dL (3.2-4.8); ASPARTATE AMINOTRANSFERASE 251 IU/L (<34)
[2024-12-05 07:49] LABS: HEMATOCRIT. 28.1 % (42.0-52.0); HEMOGLOBIN. 9.1 g/dL (14.0-18.0); MEAN CORPUSCULAR HEMOGLOBIN 29.6 pg (28.0-32.0); MEAN CORPUSCULAR HGB CONC 32.4 g/dL (31.0-37.0); MEAN CORPUSCULAR VOLUME 91.4 fL (80.0-94.0); MEAN PLATELET VOLUME 8.1 fl (7.4-10.4); PLATELET 393 x1000/uL (130-400); RED BLOOD CELL COUNT 3.08 mill/uL (4.7-6.1); RED CELL DISTRIBUTION WIDTH 13.9 % (11.6-14.6); WHITE BLOOD COUNT 14.5 x1000/uL (4.5-11.0)
[2024-12-05] MEDS ORDERED: GUAIFENESIN 200MG/10ML SUGAR FREE UDC PO PRN (08:00)
[2024-12-05 08:43] VITALS: BP 118/67; PULSE 83; RESP 17; TEMP 37.2; O2SAT 95
[2024-12-05 08:49] LABS: DIFFERENTIAL COMMENT 1
[2024-12-05] MEDS: CALCIUM GLUCONATE 1GM PREMIX 50 ML IV ONE (11:53)
[2024-12-05] MEDS: POTASSIUM CHLORIDE 10MEQ TABLET SR PO SCH (11:53)
[2024-12-05] MEDS: DIPHENHYDRAMINE 25MG CAPSULE PO NR (11:53)
[2024-12-05 12:01] LABS: PLATELET ESTIMATE NORMAL
[2024-12-05 12:29] VITALS: BP 143/68; PULSE 91; RESP 22; TEMP 36.8; O2SAT 94
[2024-12-05 16:00] VITALS: BP 133/68; PULSE 80; RESP 21; TEMP 36.8; O2SAT 95
[2024-12-05 20:00] VITALS: BP 118/67; PULSE 89; RESP 22; TEMP 37.3; O2SAT 95
[2024-12-05] MEDS: POTASSIUM CHLORIDE 20MEQ TABLET SR PO SCH (21:06)
[2024-12-06] VITALS (8 sets, daily range): BP systolic 96–143; BP diastolic 62–76; PULSE 66–80; RESP 18–26; TEMP 36.6–37.2; O2SAT 95–98
[2024-12-06 07:32] LABS: CHLORIDE 99 mEq/L (98-107); POTASSIUM 4.5 mEq/L (3.5-5.1); SODIUM 134 mEq/L (136-145)
[2024-12-06 07:34] LABS: CALCIUM 8.5 mg/dL (8.7-10.4); CARBON DIOXIDE 27 mEq/L (21-32)
[2024-12-06 07:37] LABS: HEMATOCRIT. 28.5 % (42.0-52.0); HEMOGLOBIN. 9.5 g/dL (14.0-18.0); MEAN CORPUSCULAR HEMOGLOBIN 29.8 pg (28.0-32.0); MEAN CORPUSCULAR HGB CONC 33.4 g/dL (31.0-37.0); MEAN CORPUSCULAR VOLUME 89.3 fL (80.0-94.0); MEAN PLATELET VOLUME 7.8 fl (7.4-10.4); PLATELET 438 x1000/uL (130-400); RED BLOOD CELL COUNT 3.19 mill/uL (4.7-6.1); RED CELL DISTRIBUTION WIDTH 13.8 % (11.6-14.6); WHITE BLOOD COUNT 16.9 x1000/uL (4.5-11.0)
[2024-12-06 07:39] LABS: CREATININE 0.9 mg/dL (0.6-1.3); GLUCOSE 108 mg/dL (70-105); UREA NITROGEN BLOOD 16 mg/dL (9-23)
[2024-12-06 07:41] LABS: ALANINE AMINOTRANSFERASE 324 IU/L (10-49); ALBUMIN 3.7 g/dL (3.2-4.8); ASPARTATE AMINOTRANSFERASE 174 IU/L (<34)
[2024-12-06 07:42] LABS: PROTEIN TOTAL 6.7 g/dL (6.0-8.3)
[2024-12-06] MEDS: POTASSIUM CHLORIDE 10MEQ TABLET SR PO SCH (08:28)
[2024-12-06] MEDS: FUROSEMIDE 20MG TABLET PO SCH (08:28)
[2024-12-06 08:50] LABS: DIFFERENTIAL COMMENT 1
[2024-12-06 12:46] LABS: CLARITY URINE CLEAR (CLEAR); COLOR URINE YELLOW (YELLOW); GLUCOSE URINE TRACE (NEGATIVE); KETONES URINE NEGATIVE (NEGATIVE); LEUKOCYTE ESTERASE URINE NEGATIVE (NEGATIVE); NITRITE URINE NEGATIVE (NEGATIVE); OCCULT BLOOD URINE NEGATIVE (NEGATIVE); PH URINE 5.5 (4.5-8.0); PROTEIN URINE NEGATIVE (NEGATIVE); SPECIFIC GRAVITY URINE 1.009 (1.005-1.030)
[2024-12-06 14:15] LABS: BACTERIA URINE NONE SEEN; RBC URINE NONE SEEN /hpf (0-2); SQUAMOUS EPITHELIAL CELL URINE NONE SEEN /lpf (RARE/1+); WBC URINE 0-2 /hpf (0-2); YEAST URINE NONE SEEN
[2024-12-06] MEDS: DIPHENHYDRAMINE 25MG CAPSULE PO PRN (21:31)
[2024-12-07 04:00] VITALS: BP 116/70; PULSE 73; RESP 23; TEMP 36.4; O2SAT 95
[2024-12-07 07:23] LABS: HEMATOCRIT. 28.3 % (42.0-52.0); HEMOGLOBIN. 9.2 g/dL (14.0-18.0); MEAN CORPUSCULAR HEMOGLOBIN 29.4 pg (28.0-32.0); MEAN CORPUSCULAR HGB CONC 32.6 g/dL (31.0-37.0); MEAN PLATELET VOLUME 7.6 fl (7.4-10.4); PLATELET 506 x1000/uL (130-400); RED BLOOD CELL COUNT 3.14 mill/uL (4.7-6.1); RED CELL DISTRIBUTION WIDTH 13.9 % (11.6-14.6); WHITE BLOOD COUNT 14.5 x1000/uL (4.5-11.0)
[2024-12-07 07:36] LABS: DIFFERENTIAL COMMENT 1
[2024-12-07 08:00] VITALS: BP 120/75; PULSE 80; RESP 20; TEMP 36.7; O2SAT 98
[2024-12-07 08:26] LABS: CHLORIDE 100 mEq/L (98-107); POTASSIUM 4.4 mEq/L (3.5-5.1); SODIUM 134 mEq/L (136-145)
[2024-12-07 08:29] LABS: CALCIUM 8.4 mg/dL (8.7-10.4); CARBON DIOXIDE 27 mEq/L (21-32)
[2024-12-07 08:34] LABS: ALANINE AMINOTRANSFERASE 263 IU/L (10-49); CREATININE 0.7 mg/dL (0.6-1.3); GLUCOSE 102 mg/dL (70-105); UREA NITROGEN BLOOD 14 mg/dL (9-23)
[2024-12-07 08:36] LABS: ALBUMIN 3.4 g/dL (3.2-4.8); ASPARTATE AMINOTRANSFERASE 126 IU/L (<34); BILIRUBIN TOTAL 0.9 mg/dL (0.1-1.0); PROTEIN TOTAL 6.4 g/dL (6.0-8.3)
[2024-12-07 10:01] LABS: PLATELET ESTIMATE NORMAL
[2024-12-07 10:02] LABS: ANISOCYTOSIS 1+
[2024-12-07 12:00] VITALS: BP 128/70; PULSE 81; RESP 21; TEMP 36.8; O2SAT 97
[2024-12-07] MEDS ORDERED: ATOR10TA PO (12:31)
[2024-12-07] MEDS ORDERED: FURO20TA4 PO (12:31)
[2024-12-07] MEDS ORDERED: METO25TA6 PO (12:31)
[2024-12-07] MEDS ORDERED: FERR-63 PO (12:31)
[2024-12-07] MEDS ORDERED: AMI2 PO (12:31)
[2024-12-07] MEDS ORDERED: HYDR-4001 MT (12:31)
[2024-12-07] MEDS ORDERED: POTA-189 PO (12:31)
[2024-12-07] MEDS ORDERED: CLOP-31 PO (12:31)
[2024-12-07] MEDS ORDERED: ASPI-1160 PO (12:31)
[2024-12-07 14:37] LABS: PLATELET ESTIMATE INCREASED
[2024-12-07 15:32] VITALS: BP 128/70; PULSE 81; TEMP 98.5; O2SAT 97
[2024-12-07 16:00] VITALS: BP 136/72; PULSE 74; RESP 22; TEMP 36.8; O2SAT 98
[2024-12-07 17:21] VITALS: PULSE 80
[2024-12-07] MEDS: CLOPIDOGREL 75MG TABLET PO SCH (17:27)
== END 2024-12-07 18:40 | disposition home health service (06) | DRG 233 ==
LOC: ER 19:00 → 3WST 23:09 → EDBEDREQ 23:25 → EDBEDREQTM 23:25 → 3WST 11-28 21:00 → CVICU 11-29 09:15 → 3WST 12-04 01:13
PROVIDERS: ADMIT Internal Medicine; ATTEND Internal Medicine
PROC: 4A023N7 Measurement of Cardiac Sampling and Pressure, Left Heart, Percutaneous Approach (ICD-10-PCS; 2024-11-25)
PROC: B211YZZ Fluoroscopy of Multiple Coronary Arteries using Other Contrast (ICD-10-PCS; 2024-11-25)
PROC: 02100Z9 Bypass Coronary Artery, One Artery from Left Internal Mammary, Open Approach (ICD-10-PCS; principal; 2024-11-29)
PROC: 021109W Bypass Coronary Artery, Two Arteries from Aorta with Autologous Venous Tissue, Open Approach (ICD-10-PCS; 2024-11-29)
PROC: 06BP4ZZ Excision of Right Saphenous Vein, Percutaneous Endoscopic Approach (ICD-10-PCS; 2024-11-29)
PROC: B24BZZ4 Ultrasonography of Heart with Aorta, Transesophageal (ICD-10-PCS; 2024-11-29)
PROC: 30233K1 Transfusion of Nonautologous Frozen Plasma into Peripheral Vein, Percutaneous Approach (ICD-10-PCS; 2024-11-29)
PROC: 30233R1 Transfusion of Nonautologous Platelets into Peripheral Vein, Percutaneous Approach (ICD-10-PCS; 2024-11-29)
PROC: 30233N1 Transfusion of Nonautologous Red Blood Cells into Peripheral Vein, Percutaneous Approach (ICD-10-PCS; 2024-11-30)
DX: I21.4 Non-ST elevation (NSTEMI) myocardial infarction (principal); G93.41 Metabolic encephalopathy; I50.41 Acute combined systolic (congestive) and diastolic (congestive) heart failure; I42.9 Cardiomyopathy, unspecified; D72.829 Elevated white blood cell count, unspecified; E78.5 Hyperlipidemia, unspecified; I11.0 Hypertensive heart disease with heart failure; D64.9 Anemia, unspecified; I25.10 Atherosclerotic heart disease of native coronary artery without angina pectoris; I48.91 Unspecified atrial fibrillation; R26.9 Unspecified abnormalities of gait and mobility; Z82.49 Family history of ischemic heart disease and other diseases of the circulatory system; Z86.73 Personal history of transient ischemic attack (TIA), and cerebral infarction without residual deficits; Z63.4 Disappearance and death of family member; Z79.82 Long term (current) use of aspirin; Z79.899 Other long term (current) drug therapy
CPT/HCPCS: 36415; 36600; 70551; 71045; 80048; 80053; 80061; 80076; 80305; 81003; 82375; 82803; 82805; 82962; 83036; 83735; 83880; 84100; 84132; 84484; 85025; 85027; 85347; 85379; 85384; 86850; 86900; 86920; 86927; 87070; 92523; 93005; 93306; 93458; 93880; 93970; 94002; 94060; 94070; 94640; 94664; 97110; 97116; 97161; 97164; 97166; 97530; 97535; 99291; A4606; C1725; C1729; C1751; C1758; C1769; C1887; C1893; J0282; J0610; J0690; J0692; J1171; J1200; J1265; J1644; J1650; J1815; J1940; J2003; J2250; J2440; J2470; J2597; J2704; J3010; J3370; J3430; J3475; J3480; J3490; J7060; L3908; P9016; P9017; P9034; P9047; Q0163; Q9967

== ENCOUNTER 2025-04-19 21:37 | Inpatient (IN) | payer OTHER, MEDICARE ==
[~2025-04-19] VITALS: Ht 165.1 cm; Wt 90.0 kg
[~2025-04-19 21:37] MED LIST: AMI2 PO; ASPI-1160 PO; ATOR10TA PO; CARV6.2548 MT; CLOP-31 PO; FERR-63 PO; FURO20TA4 PO; HYDR-4001 MT; ISOS30TA91 MT; POTA-189 PO
[2025-04-19] MEDS: NITROGLYCERIN 0.4MG TABLET SL SL ONE (22:48)
[2025-04-19 22:52] LABS: BASOPHILS % 0.9 % (0.0-2.0); EOSINOPHILS % 2.9 % (0.0-5.0); HEMATOCRIT. 41.2 % (42.0-52.0); HEMOGLOBIN. 13.6 g/dL (14.0-18.0); LYMPHOCYTES % 15.4 % (20.0-50.0); MEAN PLATELET VOLUME 8.2 fl (7.4-10.4); MONOCYTES % 10.2 % (2.0-8.0); NEUTROPHILS % 70.6 % (40.0-76.0); PLATELET 264 x1000/uL (130-400); RED BLOOD CELL COUNT 4.60 mill/uL (4.7-6.1); RED CELL DISTRIBUTION WIDTH 15.4 % (11.6-14.6)
[2025-04-19 23:03] LABS: INR 1.0
[2025-04-19 23:05] LABS: CREATININE 1.0 mg/dL (0.6-1.3); UREA NITROGEN BLOOD 12 mg/dL (9-23)
[2025-04-19 23:06] LABS: TROPONIN I HIGH SENSITIVITY 9 ng/L (3.0-53)
[2025-04-20] VITALS (7 sets, daily range): BP systolic 108–183; BP diastolic 65–91; PULSE 51–66; RESP 16–20; TEMP 35.7–37; O2SAT 95–98
[2025-04-20] MEDS ORDERED: ASPIRIN 81MG TABLET PO SCH
[2025-04-20 02:43] LABS: TROPONIN I HIGH SENSITIVITY 13 ng/L (3.0-53)
[2025-04-20] MEDS: HYDRALAZINE 20MG/ML VIAL IV PRN (08:17)
[2025-04-20] MEDS ORDERED: LIDOCAINE HCL 1% 20ML VIAL ONE (10:08)
[2025-04-20] MEDS ORDERED: VERAPAMIL HCL 2.5 MG/1 ML 2ML VIAL IV ONE (10:08)
[2025-04-20] MEDS ORDERED: HEPARIN 1000 UNITS/ML 10ML ONE ×2 (10:09→13:33)
[2025-04-20] MEDS ORDERED: IODIXANOL 320MG/ML 100 ML BOTTLE IV ONE ×3 (10:09→14:03)
[2025-04-20] MEDS ORDERED: ONDANSETRON HCL 4MG/2ML INJ IV PRN (10:15)
[2025-04-20] MEDS ORDERED: DOCUSATE SODIUM 100MG CAPSULE PO PRN (10:15)
[2025-04-20] MEDS ORDERED: IPRATROPIUM/ALBUTEROL 0.5-3(2.5)MG/3ML NEB HHN PRN (10:15)
[2025-04-20] MEDS ORDERED: ACETAMINOPHEN 325MG TABLET PO PRN ×3 (10:15→15:00)
[2025-04-20] MEDS ORDERED: DIPHENHYDRAMINE 50MG/ML VIAL ONE (10:16)
[2025-04-20] MEDS: CLOPIDOGREL 75MG TABLET PO SCH (10:21)
[2025-04-20] MEDS ORDERED: MIDAZOLAM HCL 2 MG/2 ML VIAL ONE (12:16)
[2025-04-20] MEDS ORDERED: FENTANYL CITRATE/PF 50MCG/ML 2ML VIAL ONE (12:16)
[2025-04-20] MEDS ORDERED: HYDRALAZINE 20MG/ML VIAL ONE ×2 (14:31→14:35)
[2025-04-20] MEDS ORDERED: SODIUM CHLORIDE 0.45% 750 ML IV SCH (15:00)
[2025-04-20] MEDS ORDERED: ATROPINE SULFATE 1MG/10ML SYR IV PRN (15:00)
[2025-04-20 17:59] LABS: BASOPHILS % 0.4 % (0.0-2.0); EOSINOPHILS % 1.2 % (0.0-5.0); HEMATOCRIT. 43.6 % (42.0-52.0); HEMOGLOBIN. 14.2 g/dL (14.0-18.0); LYMPHOCYTES % 10.2 % (20.0-50.0); MEAN PLATELET VOLUME 8.2 fl (7.4-10.4); MONOCYTES % 8.0 % (2.0-8.0); NEUTROPHILS % 80.2 % (40.0-76.0); PLATELET 270 x1000/uL (130-400); RED BLOOD CELL COUNT 4.87 mill/uL (4.7-6.1); RED CELL DISTRIBUTION WIDTH 15.6 % (11.6-14.6)
[2025-04-20 18:13] LABS: CREATININE 0.9 mg/dL (0.6-1.3)
[2025-04-20 18:14] LABS: LDL CHOLESTEROL 87 mg/dL (5-100); TRIGLYCERIDE 71 mg/dL (0-150); UREA NITROGEN BLOOD 11 mg/dL (9-23)
[2025-04-20 18:15] LABS: ASPARTATE AMINOTRANSFERASE 27 IU/L (<34)
[2025-04-20 18:16] LABS: BILIRUBIN TOTAL 1.4 mg/dL (0.1-1.0); PROTEIN TOTAL 7.4 g/dL (6.0-8.3)
[2025-04-20 19:16] LABS: CLARITY URINE CLEAR (CLEAR); COLOR URINE YELLOW (YELLOW); GLUCOSE URINE NEGATIVE (NEGATIVE); KETONES URINE NEGATIVE (NEGATIVE); LEUKOCYTE ESTERASE URINE NEGATIVE (NEGATIVE); NITRITE URINE NEGATIVE (NEGATIVE); OCCULT BLOOD URINE NEGATIVE (NEGATIVE); PH URINE 7.5 (4.5-8.0); PROTEIN URINE NEGATIVE (NEGATIVE); SPECIFIC GRAVITY URINE 1.053 (1.005-1.030); UROBILINOGEN URINE 0.2 E.U./dL (0.2-1.0)
[2025-04-20 19:42] LABS: *AMPHETAMINES SCREEN URINE NEGATIVE (NEGATIVE); *BARBITURATES SCREEN URINE NEGATIVE (NEGATIVE); *BENZODIAZEPINES SCREEN URINE PRESUMPTIVE POSITIVE (NEGATIVE)
[2025-04-20 19:43] LABS: *COCAINE SCREEN URINE NEGATIVE (NEGATIVE); CANNABINOID URINE SCREEN NEGATIVE (NEGATIVE); ECSTASY MDMA SCREEN URINE NEGATIVE (NEGATIVE); METHADONE URINE SCREEN NEGATIVE (NEGATIVE); OPIATES URINE SCREEN NEGATIVE (NEGATIVE); PHENCYCLIDINE URINE SCREEN NEGATIVE (NEGATIVE)
[2025-04-21] VITALS: BP 110/81; PULSE 67; RESP 21; TEMP 36.9; O2SAT 98
[2025-04-21 04:00] VITALS: BP 138/81; PULSE 57; RESP 21; TEMP 36.8; O2SAT 96
[2025-04-21 06:37] LABS: BASOPHILS % 0.2 % (0.0-2.0); EOSINOPHILS % 0.8 % (0.0-5.0); HEMATOCRIT. 40.0 % (42.0-52.0); HEMOGLOBIN. 13.4 g/dL (14.0-18.0); LYMPHOCYTES % 8.7 % (20.0-50.0); MEAN PLATELET VOLUME 8.2 fl (7.4-10.4); MONOCYTES % 8.1 % (2.0-8.0); NEUTROPHILS % 82.2 % (40.0-76.0); PLATELET 256 x1000/uL (130-400); RED BLOOD CELL COUNT 4.51 mill/uL (4.7-6.1); RED CELL DISTRIBUTION WIDTH 15.4 % (11.6-14.6)
[2025-04-21 06:53] LABS: CREATININE 1.0 mg/dL (0.6-1.3); UREA NITROGEN BLOOD 13 mg/dL (9-23)
[2025-04-21 08:00] VITALS: BP 131/78; PULSE 63; RESP 18; TEMP 36.9; O2SAT 97
[2025-04-21] MEDS: CLOPIDOGREL 75MG TABLET PO SCH (08:41)
[2025-04-21] MEDS ORDERED: ASPI-1497 MT (10:25)
[2025-04-21] MEDS ORDERED: CLOP-31 MT (10:25)
[2025-04-21] MEDS: ASPIRIN 81MG TABLET PO SCH (10:43)
[2025-04-21 11:01] VITALS: BP 131/78; PULSE 63; TEMP 98.4; O2SAT 97
[2025-04-21 12:00] VITALS: BP 143/83; PULSE 60; RESP 18; TEMP 36.9; O2SAT 97
== END 2025-04-21 13:40 | disposition home or self-care (01) | DRG 324 ==
LOC: ER 21:37 → 8WST 23:24 → EDBEDREQ 23:28 → EDBEDREQTM 23:28 → 3WST 04-20 15:01
PROVIDERS: ADMIT Internal Medicine; ATTEND Internal Medicine
PROC: 027034Z Dilation of Coronary Artery, One Artery with Drug-eluting Intraluminal Device, Percutaneous Approach (ICD-10-PCS; principal; 2025-04-20)
PROC: 02F03ZZ Fragmentation in Coronary Artery, One Artery, Percutaneous Approach (ICD-10-PCS; 2025-04-20)
PROC: 4A023N7 Measurement of Cardiac Sampling and Pressure, Left Heart, Percutaneous Approach (ICD-10-PCS; 2025-04-20)
PROC: B240ZZ3 Ultrasonography of Single Coronary Artery, Intravascular (ICD-10-PCS; 2025-04-20)
PROC: B2111ZZ Fluoroscopy of Multiple Coronary Arteries using Low Osmolar Contrast (ICD-10-PCS; 2025-04-20)
PROC: B41F1ZZ Fluoroscopy of Right Lower Extremity Arteries using Low Osmolar Contrast (ICD-10-PCS; 2025-04-20)
DX: I25.110 Atherosclerotic heart disease of native coronary artery with unstable angina pectoris (principal); E78.5 Hyperlipidemia, unspecified; R73.03 Prediabetes; I10 Essential (primary) hypertension; I25.2 Old myocardial infarction; Z79.82 Long term (current) use of aspirin; Z95.1 Presence of aortocoronary bypass graft
CPT/HCPCS: 36415; 71045; 80048; 80053; 80061; 80305; 81003; 83735; 83880; 84484; 85025; 85347; 93005; 93306; 93308; 99285; A4606; J0360; J1200; J1644; J2003; J2250; J3010; J3490; Q9967